=== PATIENT | male | born 1945 | race Caucasian/White ===

== ENCOUNTER 2024-04-10 13:21 | Emergency (ER) | payer MEDICARE ==
[~2024-04-10] VITALS: Ht 172.7 cm; Wt 67.9 kg
[2024-04-10] MEDS ORDERED: ATENOLOL50 MG PO (14:34)
[2024-04-10] MEDS ORDERED: AMLODIPINE BESY10 MG PO (14:34)
[2024-04-10] MEDS ORDERED: CLOPIDOGREL75 MG PO (14:35)
[2024-04-10] MEDS ORDERED: LISINOPRIL20 MG PO (14:35)
[2024-04-10] MEDS ORDERED: SIMVASTATIN40 MG PO (14:35)
[2024-04-10] MEDS ORDERED: ALBUTEROL/IPRATROPIUM 3 ML NEB INH PRN (14:45)
[2024-04-10 14:54] LABS: BASOPHILS 0.4 % (0-2); EOSINOPHILS 0.6 % (0-6); HEMATOCRIT 28.5 % (35.0-50.0); HEMOGLOBIN 9.4 g/dL (12.0-18.0); LYMPHOCYTES 9.1 % (24-44); MCH 28.7 (27-36); MCHC 33.1 g/dl (30-36); MCV 86.8 fl (81-99); MONOCYTES 5.7 % (0-12); NEUTROPHILS 84.2 % (39-80); PLATELET COUNT 281 K/uL (140-440); RBC 3.28 M/ul (4.3-5.7); RDW 15.8 (10.5-15.0)
[2024-04-10 15:11] LABS: ALBUMIN 2.6 g/dL (3.4-5.0); ALBUMIN/GLOBULIN RATIO 0.52 (1.1-2.4); ANION GAP 13.5 (7-21); BILIRUBIN, TOTAL 0.4 ng/dL (0.2-1.0); BUN/CREATININE RATIO 22.91 (6.0-28.6); CALCIUM 10.9 mg/dL (8.5-10.1); CREATININE, SERUM 0.96 mg/dL (0.70-1.30); MAGNESIUM 1.7 mg/dL (1.8-2.4); POTASSIUM 4.5 mmol/L (3.5-5.1); PROTEIN, TOTAL 7.6 g/dL (6.4-8.2)
[2024-04-10 17:08] LABS: LACTIC ACID, BLOOD 2.1 mmol/L (0.4-2.0)
[2024-04-10] MEDS ORDERED: levoFLOXacin 500 MG TAB PO ONE (17:45)
[2024-04-10] MEDS ORDERED: LEVOFLOXACIN500 MG PO (17:52)
[2024-04-10 18:06] VITALS: BP 157/66
--- NOTE | 2024-04-12 14:39 | EKG ---
[facility] [address] [facility] [place], [place] [address] Signed Sinus bradycardia with 1st degree AV block Otherwise normal ECG No previous ECGs available Confirmed by Alfonso Rogers MD ([id number]) on 04/12/2024 2:39:45 PM Electronically Signed By: ALFONSO ROGERS DO 04/12/24 1439 PATIENT NAME: KARRIE QURESHI Electrocardiogram DATE OF : 45 PHYSICIAN: ALFONSO ROGERS DO REPORT #: [id number] REPORT IS CONFIDENTIAL AND NOT TO BE RELEASED WITHOUT AUTHORIZATION
== END 2024-04-10 18:06 | disposition home or self-care (01) ==
LOC: ED 13:21
PROVIDERS: Emergency Medicine
DX: R91.8 Other nonspecific abnormal finding of lung field (principal); J18.8 Other pneumonia, unspecified organism; I10 Essential (primary) hypertension; E78.5 Hyperlipidemia, unspecified; Z79.899 Other long term (current) drug therapy
CPT/HCPCS: 36415; 71045; 71260; 80053; 83605; 83735; 83880; 84484; 85025; 85060; 87040; 93005; 93010; 94640; 99285-25